=== PATIENT | male | born 1955 | race Caucasian/White ===

== ENCOUNTER 2020-05-05 10:25 | Outpatient (REF) | payer SELFPAY | END 2020-05-05 10:26 | disposition home or self-care (01) | LOC: HO.HAP 10:25 | PROVIDERS: Visit Provider Internal Medicine | DX: Z46.1 Encounter for fitting and adjustment of hearing aid (principal) | CPT/HCPCS: 92700 ==

== ENCOUNTER 2021-07-25 14:00 | Outpatient (REF) | payer MEDICARE, SELFPAY ==
[2021-07-25 15:18] LABS: Influenza A PCR NEGATIVE (Negative); Influenza B PCR NEGATIVE (Negative); Resp Syncy Virus RNA Qual PCR NEGATIVE (Negative); SARS COV2 PCR INHOUSE NEGATIVE (Negative)
== END 2021-07-25 14:01 | disposition home or self-care (01) ==
LOC: HO.LNP 14:00
PROVIDERS: Visit Provider Physician Assistant Medical
DX: J06.9 Acute upper respiratory infection, unspecified (principal); Z20.822 Contact with and (suspected) exposure to COVID-19
CPT/HCPCS: 0241U

== ENCOUNTER 2021-09-15 07:58 | Outpatient (REF) | payer MEDICARE, SELFPAY ==
--- NOTE | 2021-09-22 13:22 | MHC.AU.AHA ---
Adult Audiological Evaluation Date of Visit: 09/15/21 Metallurgical Technician Used: Not Applicable Reason for Appointment: Audiologic re-evaluation due to question of change in hearing ability. Previous Hearing Test Results: 03/16/2019 [facility] Right ear - Mild to severe sensorineural hearing loss. Left ear - Mild dropping to profound sensorineural hearing loss. Medical History: Medical History: High Blood Pressure Medication List: Losartan, Loratadine, Prilosec, Alleve Hearing Instrument History- Right Ear: Superintendent Renting Managing: [employer] Model: Ria2 Pro RITE Serial Number: [id number] Battery Size: 312 Repair Warranty: 03/29/19 Dispensed By: [facility] Hearing Instrument History- Left Ear: Superintendent Renting Managing: [employer] Model: Ria2 Pro RITE Serial Number: [id number] Battery Size: 312 Warranty: 03/29/19 Dispensed By: [facility] Otoscopy: Right Ear: Unremarkable Left Ear: Unremarkable Tympanometry: Not performed at today's visit as all previous results have indicated normal middle ear function bilaterally. Hearing Evaluation: Transducer(s) Used: Insert Earphones Bone Conduction Method: Conventional Audiometry Stimuli Used: Pure Tones Right Ear: Description of Hearing: Normal hearing threshold at 250 Hz, dropping to a severe high frequency sensorineural hearing loss. Left Ear: Description of Hearing: Normal hearing threshold at 250 Hz, dropping to a profound high frequency sensorineural hearing loss with 5903-4551 Hz thresholds being 10-15 dB poorer than the right ear. Speech Recognition Threshold (SRT): Method Used: Monitored Live Voice Stimuli Used: Right Ear: 30 dB HL Left Ear: 35 dB HL Word Discrimination: Method: Recorded Lists Word Lists Used: NU-6 Right Ear: 88% at 70 dB HL Left Ear: 72% at 75 dB HL Comparison: Compared to the most recent evaluation: Hearing is stable. Recommendations: Audiological re-evaluation in one year. Will send a reminder card. Hearing aid maintenance performed today. Diagnosis: Primary Diagnosis: H90.3 Bilateral Sensorineural Hearing Loss Services Performed: Comprehensive Audiological Evaluation (CPT 38857) Signature: Provider: Ayo Martinez, [facility]3]-A
== END 2021-09-15 07:59 | disposition home or self-care (01) ==
LOC: HO.SH 07:58
PROVIDERS: Visit Provider Internal Medicine
DX: Z01.118 Encounter for examination of ears and hearing with other abnormal findings (principal); H90.3 Sensorineural hearing loss, bilateral
CPT/HCPCS: 92557

== ENCOUNTER 2021-09-15 08:51 | Outpatient (REF) | payer SELFPAY | END 2021-09-15 08:52 | disposition home or self-care (01) | LOC: HO.HAP 08:51 | PROVIDERS: Visit Provider Internal Medicine | DX: Z46.1 Encounter for fitting and adjustment of hearing aid (principal); H90.3 Sensorineural hearing loss, bilateral | CPT/HCPCS: V5267 ==

== ENCOUNTER 2021-11-24 15:03 | Outpatient (REF) | payer SELFPAY | END 2021-11-24 15:04 | disposition home or self-care (01) | LOC: HO.HAP 15:03 | PROVIDERS: Visit Provider Internal Medicine | DX: Z46.1 Encounter for fitting and adjustment of hearing aid (principal) | CPT/HCPCS: V5267 ==

== ENCOUNTER 2023-11-08 09:32 | Outpatient (AMB) | payer MEDICARE, OTHER, SELFPAY ==
--- NOTE | 2023-11-08 09:34 | AM.OFFWIN_ITS ---
Intake Vital Signs 11/08/23 09:44 Height 5 ft 3 in Weight 192 lb BMI 34.0 BP 138/80 Blood Pressure Location Lt brachial Position Sitting Pulse 90 Pulse Source Pulse Oximeter Temp 98.1 F Temp Source Temporal Artery Scan Pulse Oximetry (%) 96 Oxygen Delivery Method Room Air Intake Visit Reasons: EP Congestion cough (lobby) Intake Note: pt is here today for congestion cough started 1 week ago Patient Tobacco Use Status: Former Tobacco user Allergies No Known Allergies [No Known Allergies*] Allergy (Verified 11/08/23 09:48) Do you need a note to return to daycare/school/sports/work: No HPI HPI Comments History of Present Illness Details This is a 68-year-old male who presents to the walk-in clinic complaining of chest congestion with productive cough with green/yellow sputum as well as nasal congestion/rhinorrhea with green/yellow nasal discharge for the past 1 week. He denies any fever/chills. He denies any chest pain/shortness of breath. He denies any abdominal pain or nausea/vomiting/diarrhea. He states he is otherwise feeling well. [facility] Social History Patient Tobacco Use Status: Former Tobacco user Review of Systems Const All systems reviewed & are unremarkable except as noted in HPI and below Reports no additional complaints Eyes Reports no additional complaints ENT Reports no additional complaints Card Reports no additional complaints Resp Reports no additional complaints GI Reports no additional complaints Reports no additional complaints Musc Reports no additional complaints Skin/Breast Reports system reviewed and no additional complaints, except as documented Neuro Reports no additional complaints Psych Reports no additional complaints Endo Reports no additional complaints Enzo/Lymph Reports no additional complaints Aller/Immun Reports no additional complaints Physical Exam Vital Signs: Last Vital Signs Temp 98.1 F 11/08/23 09:44 Pulse 90 11/08/23 09:44 BP 138/80 11/08/23 09:44 Pulse Ox 96 11/08/23 09:44 Oxygen Delivery Method Room Air 11/08/23 09:44 BMI result Body Mass Index 34.0 Const Other: Vital signs reviewed. Constitutional: Non-toxic appearing. No acute distress. Well-developed and well-nourished. HEENT: Normocephalic and atraumatic. Skin: Warm and dry. No rashes or lesions noted. Neck: Full and painless range of motion. No cervical lymphadenopathy. Cardio: Regular rate and rhythm. No murmurs, gallops, or rubs. No lower extremity edema. No JVD. Pulmonary: No respiratory distress. No accessory muscle usage. Clear to auscultation bilaterally without wheezing, crackles, or rhonchi. Gastrointestinal: Soft, nontender, and nondistended in all 4 quadrants. Musculoskeletal: Normal range of motion in joints throughout the body. No deformity or other signs of injury. Neuro: Alert and oriented x4. Cranial nerves 2-12 grossly intact. No focal deficits appreciated. Psych: Normal mood and affect. Assessment & Plan Assessment & Plan (1) Acute lower respiratory tract infection: Code(s): J22 - Unspecified acute lower respiratory infection Plan: This is a 68-year-old male who presented to the walk-in clinic complaining of a productive cough with green/yellow sputum and mild nasal congestion/rhinorrhea with green/yellow nasal drainage. On physical examination, her lungs are clear to auscultation bilaterally. I recommended a chest x-ray to rule out pneumonia given his productive cough with green/yellow sputum; however, patient declined as he had to get home to care for his elderly father in law. Patient was given a prescription for p.o. azithromycin 500 mg today followed by 250 mg daily x4 days as well as p.o. benzonatate 100 mg 3 times daily as needed for cough. Recommended symptomatic management including rest, increase fluids, acetaminophen/ibuprofen for pain/fevers, an [id number] decongestants/mucolytics including guaifenesin. Patient was advised to follow- up here or proceed to the emergency room if he were to develop fever/chills, worsening sputum production/purulence, or hemoptysis. Patient verbalizes understanding and he is in agreement with the plan. Medications: New azithromycin For 250 mg dose pack: take 500 mg today (day 1), then 250 mg for 4 days (days 2-5) PO 6 tabs 0RF benzonatate 100 mg PO TID PRN 14 caps 0RF cough Coding Level of Care Code Est Pt Level 3 (30483) Diagnoses Acute lower respiratory tract infection J22
[2023-11-08 09:44] VITALS: BP 138/80; PULSE 90; TEMP 36.7; O2SAT 96; BMI 34.0
== END 2023-11-08 16:10 | disposition home or self-care (01) ==
PROVIDERS: PCP Internal Medicine; Visit Provider Physician Assistant Medical
DX: J22 Unspecified acute lower respiratory infection (principal)
CPT/HCPCS: 99213